=== PATIENT | male | born 1975 | race Caucasian/White ===

== ENCOUNTER 2021-07-03 15:38 | Observation (INO) | payer MEDICARE ==
[~2021-07-03] VITALS: Wt 87.0 kg
[2021-07-03] VITALS (9 sets, daily range): BP systolic 96–137; BP diastolic 44–69; PULSE 55–88; TEMP 97.4–99
[2021-07-03] MEDS ORDERED: BENADRYL25 M2 PO (16:45)
[2021-07-03] MEDS ORDERED: MOTRIN 200200 MG/TAB PO (16:46)
[2021-07-03] MEDS ORDERED: DEBROX OT (16:46)
[2021-07-03] MEDS ORDERED: [UNRECOGNIZED DRUG - OTHER] PO (16:47)
[2021-07-03] MEDS ORDERED: ROBITUSSIN DM 105 ML PO (16:48)
[2021-07-03] MEDS ORDERED: GOOD SENSE400 MG/5 M PO (16:49)
[2021-07-03] MEDS ORDERED: TYLENOL 325MG325 MG PO (16:49)
[2021-07-03] MEDS ORDERED: FLEET ENEM1 BOT/133 RC (16:51)
[2021-07-03] MEDS ORDERED: GLYCERIN S1 SUPP.REC RC (16:51)
[2021-07-03] MEDS ORDERED: ZESTRIL 10MG10 MG PO (16:52)
[2021-07-03] MEDS ORDERED: HCTZ 25MG TAB25 MG PO (16:53)
[2021-07-03] MEDS ORDERED: FLOMAX 0.40.4 MG/CAP PO (16:54)
[2021-07-03] MEDS ORDERED: TRICOR145 MG PO (16:54)
[2021-07-03] MEDS ORDERED: ZILRETTA32 MG (16:55)
--- NOTE | 2021-07-03 19:40 | NUR ---
To OR with OR staff.
--- NOTE | 2021-07-03 20:25 | NUR ---
Back to room from OR at this time. Admission assessment complete-managed care nurse at bedside. A&Ox4. Denies pain/nausea/shortness of breath. VS currently stable. Phillips cath with bloody output. IV fluids switched to 1/2 NS@60ml/hr to left forearm 22g. Infusing without difficulty. Provided with a general diet. noodle catalyst maker remains at bedside. Will monitor.
[2021-07-04 00:15] VITALS: BP 108/56; PULSE 62; TEMP 97.8
[2021-07-04 03:27] VITALS: BP 119/65; PULSE 68; TEMP 98.3
--- NOTE | 2021-07-04 05:07 | NUR ---
Rested well this shift. Tolerated PO. Phillips cath with reddish out put. IV fluids continue to infuse to left AC 22g-1/2NS@60ml/hr. Denied pain/nausea/shortness of breath. VS remained stable. Denies current needs. Call light in reach. Will monitor.
[2021-07-04 07:57] VITALS: BP 130/55; PULSE 74; TEMP 98.5
[2021-07-04] MEDS ORDERED: CIPRO 500MG TA500 MG PO (10:39)
--- NOTE | 2021-07-04 10:44 | NUR ---
Dr Clark has been in to see patient. Orders wrote for discharge, mother reported that they will not have a ride until closer to 3:30 this afternoon
[2021-07-04 12:27] VITALS: BP 126/50; PULSE 77; TEMP 98.4
--- NOTE | 2021-07-04 12:30 | NUR ---
Heart murmur, lungs clear to ausculation, bowels active x4. Discharge education consisted of patient's castillo catheter care.
--- NOTE | 2021-07-04 14:23 | NUR ---
Reviewed catheter care again with pt as well as his mother. Also gave them the catheter care handout. Reviewed discharge instructions with them as well to include follow up appointment
--- NOTE | 2021-07-04 14:43 | NUR ---
Reviewed dishcarge instructions again with pt and his parents. Reviewed catheter care and sent home with alcohol wipes as well as the catheter care wipes as there is concern about hygiene at home.
--- NOTE | 2021-07-04 14:52 | NUR ---
Pt escorted out at this time
--- NOTE | 2021-07-04 15:15 | NUR ---
Ear Pull Machine Operator met with patient and his mother/guardian, Ambar Stiles to discuss discharge planning. Patient has an intellectual disability and goes to Day [facility] at [facility] in [place] Wednesday-Wednesday. Patient lives at home with his parents, Ambar and Arnaldo and sees Dr. Arellano for primary care. Patient obtains medications from [facility] in bubble packs. During the week, -, patient receives medications at [facility] however on the weekends, two days worth of medications are sent home with him to take on Wednesday and Wednesday. Patient does not use any DME and receives some assistance from staff at [facility] with ADLS. Patient has a shower every day at [facility] and has his clothes washed as well due to concerns of lack of hygiene at home. RNTanya reported concern with patient and Ambar's hygiene as well concerns for ability to care for the catheter at home. HENRY contacted Ya Franco, Cold Type Artist and Zee Beatty, Analog Design Engineer at the [facility] who confirmed the above information. Zee advised patient is on the wait list for a fci and that she recently made an APS report for patient. Zee and Ya advised patient will have to discharge with his parents, however they are checking into the possibility of a respite stay in a fci while patient has the catheter. HENRY made a report to APS due to the above listed concerns as well as concern for food availability at home. APS intake #[id number]. Discharge Plan: Home
== END 2021-07-04 15:09 | disposition home or self-care (01) ==
LOC: SDCO 15:38 → SURG 18:00 → SDCO 20:28 → SURG 20:29
PROVIDERS: ADMIT Urology
DX: N35.914 Unspecified anterior urethral stricture, male (principal); N40.0 Benign prostatic hyperplasia without lower urinary tract symptoms; I10 Essential (primary) hypertension; E78.5 Hyperlipidemia, unspecified; F79 Unspecified intellectual disabilities; L21.9 Seborrheic dermatitis, unspecified; Z79.899 Other long term (current) drug therapy
CPT/HCPCS: C1769; C1894; G0378; J0690; J2704; J3010

== ENCOUNTER 2023-09-15 14:31 | Inpatient (IN) | payer MEDICARE, MEDICAID ==
[2023-09-15] VITALS (33 sets, daily range): BP systolic 91–133; BP diastolic 58–85; PULSE 96–118; TEMP 98.4; O2SAT 70–100
[~2023-09-15] VITALS: Ht 175.3 cm; Wt 77.0 kg
[~2023-09-15 14:31] MED LIST: BENADRYL25 M2 PO; CIPRO 500MG TA500 MG PO; DEBROX OT; FLEET ENEM1 BOT/133 RC; FLOMAX 0.40.4 MG/CAP PO; GLYCERIN S1 SUPP.REC RC; GOOD SENSE400 MG/5 M PO; HCTZ12.5TAB PO; MOTRIN 200200 MG/TAB PO; ROBITUSSIN DM 105 ML PO; TRICOR145 MG PO; TYLENOL 325MG325 MG PO; ZESTRIL 10MG10 MG PO; ZILRETTA32 MG; [UNRECOGNIZED DRUG - OTHER] PO
[2023-09-15 15:43] LABS: HEMOGLOBIN 17.8 g/dl (13.5-18.0); MEAN CELL VOLUME 96 fl (80.0-100.0); MEAN CORPUSCULAR HEMOGLOBIN 32 pg (27-31); MEAN CORPUSCULAR HGB CONC 34 g/dl (33.0-37.0); MEAN PLATELET VOLUME 10.8 fl (7.4-10.4); PLATELET COUNT 248 K/mm3 (130-400); RED BLOOD COUNT 5.54 M/mm3 (4.20-5.60); REDCELL DISTRIBUTION WIDTH-CV 13.7 % (11.5-14.5)
[2023-09-15 15:58] LABS: BAND 57 % (0-10); LYMPHOCYTE 15 % (20.0-51.0); METAMYELOCYTE 3 % (0-0); NEUTROPHILS 19 % (42.0-75.2)
[2023-09-15 15:59] LABS: PLATELET ESTIMATE NORMAL (NORMAL); POIKILOCYTOSIS 1+
[2023-09-15 19:01] LABS: BILIRUBIN,TOTAL 0.5 mg/dL (0.2-1.2); CALCIUM 8.1 mg/dL (8.4-10.2); CREATININE, serum 3.86 mg/dL (0.72-1.25); POTASSIUM 4.7 mmol/L (3.5-4.5); TOTAL PROTEIN 5.9 gm/dL (6.2-8.1)
[2023-09-15] MEDS ORDERED: K-DUR 10 MEQ T10 MEQ PO (20:35)
--- NOTE | 2023-09-15 23:27 | NUR ---
PT ARRIVED TO ICU VIA BED ACCOMPANIED BY OR STAFF. PT INTUBATED, SEDATED, AND IV FLUIDS/LEVOPHED RUNNING. SOOD CATHETER IN PLACE - REDDISH URINE. IMMEDIATELY UPON ARRIVAL SURGERY TEAM BEGAN TO PLACE RIGHT SUBCLAVIAN CENTRAL LINE AND LEFT RADIAL ARTERIAL LINE. BOTH DONE SUCCESSFULLY, VITALS WITHIN NORMAL LIMITS. CXR COMPLETED TO VERIFY CENTRAL LINE PLACEMENT. PT HAS MIDLINE ABD INCISION NOTED - ABD DRESSING - CDI. NEW COLOSTOMY NOTED - CDI - DRAINING. PLAN OF CARE ONGOING.
[2023-09-16] VITALS (824 sets, daily range): BP systolic 78–128; BP diastolic 42–83; PULSE 67–120; TEMP 97.4–100; O2SAT 68–100
[2023-09-16 01:01] LABS: ARTERIAL BLD GAS O2 SATURATION 99.2 % (92-100); ARTERIAL BLD GAS TCO2 CT 18.1; ARTERIAL BLOOD GAS BASE EXCESS -6.8 (-2-2); ARTERIAL BLOOD GAS HCO3 17.2 meq/L (22-26); ARTERIAL BLOOD GAS PCO2 31.1 mmHg (35-45); ARTERIAL BLOOD GAS PO2 206.5 mmHg (80-100); ARTERIAL BLOOD GAS pH 7.36 (7.35-7.45)
[2023-09-16 01:13] LABS: INR 1.8 (0.8-3.0); PROTHROMBIN TIME 19.5 SECONDS (9.7-12.8)
--- NOTE | 2023-09-16 05:41 | NUR ---
PT ON STARTING DOSE OF BOTH FENTANYL AND PROPOFOL. PT IS EASILY AROUSABLE AT THESE SEDATION LEVELS. CAN MOVE BOTH EXTREMITIES. RASS IS -1. TOLERATING VENT WELL. VITALS WNL.
[2023-09-16 05:50] LABS: HEMATOCRIT 45.5 % (42.0-52.0); MEAN CELL VOLUME 94 fl (80.0-100.0); MEAN CORPUSCULAR HEMOGLOBIN 32 pg (27-31); MEAN CORPUSCULAR HGB CONC 34 g/dl (33.0-37.0); MEAN PLATELET VOLUME 10.8 fl (7.4-10.4); PLATELET COUNT 205 K/mm3 (130-400); RED BLOOD COUNT 4.83 M/mm3 (4.20-5.60); REDCELL DISTRIBUTION WIDTH-CV 13.8 % (11.5-14.5)
[2023-09-16 06:15] LABS: HEMOGLOBIN 15.4 g/dl (13.5-18.0)
[2023-09-16 06:59] LABS: BAND 52 % (0-10); LYMPHOCYTE 26 % (20.0-51.0); METAMYELOCYTE 2 % (0-0); NEUTROPHILS 13 % (42.0-75.2); PLATELET ESTIMATE NORMAL (NORMAL)
[2023-09-16 07:01] LABS: BURR CELLS 1+; POIKILOCYTOSIS 1+
[2023-09-16 07:26] LABS: ALBUMIN 2.1 gm/dL (3.5-5.0); BILIRUBIN,TOTAL 0.7 mg/dL (0.2-1.2); CALCIUM 7.6 mg/dL (8.4-10.2); CREATININE, serum 3.54 mg/dL (0.72-1.25); POTASSIUM 4.5 mmol/L (3.5-4.5); TOTAL PROTEIN 4.9 gm/dL (6.2-8.1)
--- NOTE | 2023-09-16 07:35 | NUR ---
Report received from DRAKE Coronel; patient currently sedated on ventilator with prop and fent running through his subclavian central line for sedation; patient is also on levo and fluids, also running through his central line. Patient has ET tube and NG tube in place, as well as Phillips catheter and new colostomy. Patient has two peripheral INTs; no other lines or tubes are in place at this time. Patient appears to be comfortably sedated; vital signs are within normal limits this morning.
[2023-09-16 08:45] LABS: ARTERIAL BLD GAS O2 SATURATION 98.5 % (92-100); ARTERIAL BLOOD GAS BASE EXCESS -7.5 (-2-2); ARTERIAL BLOOD GAS HCO3 16.1 meq/L (22-26); ARTERIAL BLOOD GAS PCO2 28.3 mmHg (35-45); ARTERIAL BLOOD GAS pH 7.37 (7.35-7.45)
[2023-09-16 08:48] LABS: ARTERIAL BLOOD GAS PO2 129.1 mmHg (80-100)
--- NOTE | 2023-09-16 10:24 | NUR ---
Patient has an intellectual disability and lives at [facility] in a residential halfway in [place]. HENRY met with patient's manager science, Michel, and obtained contact information for patient's parents whom are currently in the [facility]. P# [phone] option 1 for residents and option 2 for nursing. HENRY contacted Ambar and Arnaldo Go, patient's next of kin. They expressed they would see if they could come up and visit with Thomas. HENRY contacted [facility] transportation and notified them that patient's family would like to visit their son. Patient's family currently have "colds", HENRY verified with Chen, ICU mail clerks supervisor, if there was restrictions on visits. Patient's family will need to wear a mask and if they need any assistance with care the nursing facility would need to assist with this. HENRY notified [facility] of the above information and they were going to work out a time for family to visit. HENRY contacted [facility] Acoustical Tile Patternmaker, Prisca Vaughan. HENRY provided updates regarding patient's status and notified her that she let patient's family know that he was in the ICU. Prisca requested updates sent via email to [email or web address]. HENRY obtained patient's new address, [address] [place] [address] Garza, pharmacy is [facility]. Patient is his own guardian, [facility] is the payee. No DME, previously was independent with ADLS. [facility] is able to transport patient to and from appointments. HENRY updated patient's information in the chart with admissions.
--- NOTE | 2023-09-16 11:13 | NUR ---
log pond worker sent email updates to [facility] showcase trimmer.
--- NOTE | 2023-09-16 16:45 | NUR ---
Patient's parents (Soheila) at bedside with Lea ([facility]) that transported them for visit. Clinical update provided at this time based on providers progress notes. Discussed surgery last night, ventilator rationale, vasopressors & plan of care. All questions answered & support offered. Advised Arnaldo & Ambar that they are the patient's legal decision makers while he on the ventilator. Discussed a communication plan so that they can receive updates, as well as hospital staff having good contact information. Zee [facility] - channel worker is the best contact 22/03 should the patient decline or if consent is needed. She will arrange a phone call with patient's parents. Soheila approved that Zee can call & get updates. An alternate phone number if Zee cannot be reached is the nurses station [phone] - option #2. Soheila did approve that the patient's strategic partner development manager at [facility] could call & get updates. Prisca [phone] - option #0 is the patient's strategic partner development manager.
--- NOTE | 2023-09-16 19:47 | NUR ---
Sedation vacation not done today as patient is on very minimal sedation and is responsive; patient appears comfortable and is arousable and able to follow commands.
--- NOTE | 2023-09-16 21:05 | NUR ---
LEVOPHED ORDER CHANGED TO 8MG/8ML PER 250ML DEXTROSE 5% DUE TO HIGH RATE AND VOLUME OF FLUID PATIENT RECIEVING WITH LOWER CONCENTRATION. PREVIOUS RATE WAS 118ML/HR, NEW RATE IS 59ML/HR. PATIENT RECIEVING SAME DOSE.
[2023-09-17] VITALS (38 sets, daily range): BP systolic 95–124; BP diastolic 56–99; PULSE 60–91; TEMP 98.4–99.9; O2SAT 100
[2023-09-17 04:44] LABS: ALBUMIN 1.7 gm/dL (3.5-5.0); BILIRUBIN,TOTAL 0.9 mg/dL (0.2-1.2); CALCIUM 7.9 mg/dL (8.4-10.2); CREATININE, serum 1.89 mg/dL (0.72-1.25); POTASSIUM 3.2 mmol/L (3.5-4.5); TOTAL PROTEIN 4.7 gm/dL (6.2-8.1)
[2023-09-17 05:00] LABS: HEMATOCRIT 39.7 % (42.0-52.0); MEAN CELL VOLUME 94 fl (80.0-100.0); MEAN CORPUSCULAR HEMOGLOBIN 32 pg (27-31); MEAN CORPUSCULAR HGB CONC 34 g/dl (33.0-37.0); MEAN PLATELET VOLUME 10.7 fl (7.4-10.4); PLATELET COUNT 176 K/mm3 (130-400); RED BLOOD COUNT 4.23 M/mm3 (4.20-5.60); REDCELL DISTRIBUTION WIDTH-CV 13.6 % (11.5-14.5)
[2023-09-17 05:03] LABS: HEMOGLOBIN 13.4 g/dl (13.5-18.0)
[2023-09-17 05:21] LABS: ARTERIAL BLD GAS O2 SATURATION 98.1 % (92-100); ARTERIAL BLOOD GAS BASE EXCESS -1.7 (-2-2); ARTERIAL BLOOD GAS pH 7.46 (7.35-7.45)
[2023-09-17 05:22] LABS: ARTERIAL BLD GAS TCO2 CT 21.9
[2023-09-17 05:27] LABS: MAGNESIUM 1.9 mg/dL (1.6-2.6); PHOSPHOROUS 4.5 mg/dL (2.3-4.7)
[2023-09-17 06:21] LABS: BAND 55 % (0-10); LYMPHOCYTE 14 % (20.0-51.0); METAMYELOCYTE 1 % (0-0); NEUTROPHILS 25 % (42.0-75.2)
[2023-09-17 06:22] LABS: PLATELET ESTIMATE NORMAL (NORMAL)
--- NOTE | 2023-09-17 07:00 | NUR ---
Report received from DRKAE Gaytan; patient currently intubated and sedated with prop and fent running for sedation. Patient remains on levo and vaso this morning as well; IVF are also running, all going through patient's right internal jugular central line. Patient has a peripheral INT in the left arm, and ET tube, NG tube, and Phillips catheter are all still in place; patient has ART line in the left wrist. No other lines or tubes are in place at this time.
--- NOTE | 2023-09-17 15:57 | NUR ---
Solid Waste Disposal Manager spoke briefly with DRAKE Coreas from [facility] who is at bedside with patient. Lyudmila had no questions or concerns for SW at this time in regards to patient.
--- NOTE | 2023-09-17 17:00 | NUR ---
Sedation vacatoion not done today as patient is answering questions appropriately and is also responsive and follows commands. Patient is comfortable and shakes head "no" when asked if he is in any pain or uncomfortable.
--- NOTE | 2023-09-17 19:00 | NUR ---
RECEIVED CHANGE OF SHIFT REPORT FROM DRAKE MUÑOZ. PATIENT IS CURRENTLY SEDATED AND INTUBATED WITH A TLC IN HIS RIGHT SUBCLAVIAN, WITH FLUIDS, ANTIBIOTICS, SEDATION, PAIN MANAGEMENT AND VASOPRESSORS RUNNING. TRIPLE LUMEN IS PATENT WITH GOOD BLOOD RETURN. PATIENT ALSO HAS ONE INT SITE IN HIS LEFT FOREARM, FLUSHES AND IS PATENT. PATIENT HAS COLOSTOMY AND SOOD CATHETER WHICH ARE BOTH PATENT AND DRAINING TO GRAVITY. PATIENT HAS EYES CLOSED AND SEEMS TO BE RESTING. PATIENT DOES NOT WANT TV ON. WILL FURTHER ASSESS.
--- NOTE | 2023-09-17 19:48 | NUR ---
CALLED DR. Noah WALKER REGARDING PATIENT'S SCHEDULED ZOPHRAN. ALSO SPOKE TO DR. Rikki WALKER ABOUT DISCONTINUING PATIENT'S ARTERIAL LINE. AGREEABLE TO BOTH.
--- NOTE | 2023-09-17 22:47 | NUR ---
PATIENT'S ARTERIAL LINE DISCONTINUED AND PATIENT'S ZOPHRAN ORDER EDITED.
[2023-09-18] VITALS (313 sets, daily range): BP systolic 92–133; BP diastolic 42–80; PULSE 52–104; TEMP 96.7–99.7; O2SAT 91–100
[2023-09-18 04:51] LABS: MEAN CELL VOLUME 94 fl (80.0-100.0); MEAN CORPUSCULAR HGB CONC 34 g/dl (33.0-37.0); MEAN PLATELET VOLUME 10.5 fl (7.4-10.4); PLATELET COUNT 135 K/mm3 (130-400); RED BLOOD COUNT 3.18 M/mm3 (4.20-5.60); REDCELL DISTRIBUTION WIDTH-CV 13.8 % (11.5-14.5)
[2023-09-18 04:59] LABS: MEAN CORPUSCULAR HEMOGLOBIN 32 pg (27-31)
--- NOTE | 2023-09-18 05:01 | NUR ---
NOTIFIED BY LAB REGARDING PATIENT'S DELTA CHANGE IN HEMAGLOBIN
[2023-09-18 05:02] LABS: HEMOGLOBIN 10.2 g/dl (13.5-18.0)
[2023-09-18 05:06] LABS: MAGNESIUM 1.6 mg/dL (1.6-2.6)
--- NOTE | 2023-09-18 05:06 | NUR ---
PLAN FOR EXTUBATION TODAY AT 0700. SEDATION CUT IN HALF AND WILL BE COMPLETELY OFF AT 0600.
[2023-09-18 05:10] LABS: ALBUMIN 1.5 gm/dL (3.5-5.0); BILIRUBIN,TOTAL 0.6 mg/dL (0.2-1.2); CALCIUM 7.7 mg/dL (8.4-10.2); CREATININE, serum 1.2 mg/dL (0.72-1.25); POTASSIUM 3.2 mmol/L (3.5-4.5); TOTAL PROTEIN 4.4 gm/dL (6.2-8.1)
[2023-09-18 06:50] LABS: BAND 17 % (0-10); LYMPHOCYTE 5 % (20.0-51.0); NEUTROPHILS 73 % (42.0-75.2)
[2023-09-18 06:51] LABS: BURR CELLS 1+; PLATELET ESTIMATE NORMAL (NORMAL)
--- NOTE | 2023-09-18 07:47 | NUR ---
PT STARTED ON CPAP TRIAL @0700 TOLERATING WELL. RSBI 69-80 VT'S 300-400 R 20-25.
[2023-09-18 08:20] LABS: ARTERIAL BLD GAS O2 SATURATION 96.1 % (92-100); ARTERIAL BLD GAS TCO2 CT 25.9; ARTERIAL BLOOD GAS BASE EXCESS 0.7 (-2-2); ARTERIAL BLOOD GAS HCO3 24.7 meq/L (22-26); ARTERIAL BLOOD GAS PCO2 37.3 mmHg (35-45); ARTERIAL BLOOD GAS PO2 80.9 mmHg (80-100); ARTERIAL BLOOD GAS pH 7.44 (7.35-7.45)
--- NOTE | 2023-09-18 09:16 | NUR ---
PATIENT SUCCESSFULLY EXTUBATED AT THIS TIME. NG DC'D ALONG WTIH PROPOFOL AND FENTANYL PER PROVIDER. PATIENT DOING WELL AND CONVERSING WITH STAFF. SUPPLEMENTAL O2 BEING PROVIDED VIA NASAL CANNULA AT 2L. NONVIOLENT RESTRAINTS DC'D AT THIS TIME.
--- NOTE | 2023-09-18 13:09 | NUR ---
PT EXTUBATED WITHOUT COMPLICATIONS. PLACED ON 2L/NC 98%. TOLERATING WELL
--- NOTE | 2023-09-18 19:00 | NUR ---
RECEIVED CHANGE OF SHIFT REPORT FROM DRAKE DONAHUE. PATIENT IS CURRENTLY VISITING WITH FAMILY, WITH THE TV ON AND THE BED IN CHAIR POSITION. PATIENT CURRENTLY STILL HAS 2 INT SITES WITH AMIO AND LEVOPHED RUNNING. PATIENT IS ON OXYGEN AT 5L NASAL CANNULA. PATIENT STILL HAS A SOOD CATHETER IN PLACE, PATENT AND DRAINING TO GRAVITY. VITAL SIGNS HAVE BEEN STABLE. CALL LIGHT IS WITHIN REACH.
--- NOTE | 2023-09-18 19:20 | NUR ---
RECEIVED CHANGE OF SHIFT REPORT FROM DRAKE DONAHUE. PATIENT IS CURRENT RESTING WITH EYES CLOSED IN BED. PATIENT'S VITAL SIGNS ARE STABLE. PATIENT STILL HAS TRIPLE LUMEN CATHETER AND LEFT ANTECUBITAL INT SITE STILL IN PLACE, BOTH PATENT AND THE TRIPLE WITH GOOD BLOOD RETURN. SOOD CATHETER STILL IN PLACE, PATENT AND DRAINING TO GRAVITY. PATIENT HAS COMPLAINTS OF PAIN, WILL REMEDY. CALL LIGHT WITH WITHIN REACH.
[2023-09-19] VITALS (362 sets, daily range): BP systolic 127–142; BP diastolic 65–88; PULSE 59–88; TEMP 97.2–99.2; O2SAT 89–97
[2023-09-19 06:10] LABS: HEMOGLOBIN 11.2 g/dl (13.5-18.0); MEAN CELL VOLUME 93 fl (80.0-100.0); MEAN CORPUSCULAR HEMOGLOBIN 32 pg (27-31); MEAN CORPUSCULAR HGB CONC 34 g/dl (33.0-37.0); MEAN PLATELET VOLUME 9.9 fl (7.4-10.4); PLATELET COUNT 130 K/mm3 (130-400); RED BLOOD COUNT 3.53 M/mm3 (4.20-5.60); REDCELL DISTRIBUTION WIDTH-CV 14.2 % (11.5-14.5)
[2023-09-19 06:20] LABS: INR 1.3 (0.8-3.0); PROTHROMBIN TIME 13.5 SECONDS (9.7-12.8)
[2023-09-19 06:20] LABS: HEMATOCRIT 32.8 % (42.0-52.0)
[2023-09-19 06:34] LABS: CALCIUM 8.6 mg/dL (8.4-10.2); CREATININE, serum 0.85 mg/dL (0.72-1.25); MAGNESIUM 1.5 mg/dL (1.6-2.6); PHOSPHOROUS 2.3 mg/dL (2.3-4.7); POTASSIUM 3.7 mmol/L (3.5-4.5)
[2023-09-19 08:01] LABS: BAND 18 % (0-10); EOSINOPHIL 1 % (0-4); LYMPHOCYTE 15 % (20.0-51.0); NEUTROPHILS 58 % (42.0-75.2); PLATELET ESTIMATE NORMAL (NORMAL)
--- NOTE | 2023-09-19 20:13 | NUR ---
PATIENT TRANSFERRED TO [place] [id number] BY SURGICAL FLOOR STAFF, KAISER KIDDVES NURSE REPORT, VITALS RECORDED
--- NOTE | 2023-09-19 22:28 | NUR ---
PATIENT ALERT TO SELF, BUT WITH COGNITIVE DELAY HARD TO ASSESS ORIENTATION. PATIENT NONVERBAL BUT WILL ANSWER YES OR NO TO QUESTIONS. PATIENT HERE FOR EXPLORATORY LAP. MIDLINE INCISION WITH JASON INTACT, DRESSING CHANGED WITH ABD AND MEPILEX. COLOSTOMY IN PLACE AND LOOSE, BROWN OUTPUT. SOOD TO DD WITH PEACH/CLOUDY OUTPUT. PATIENT HESITANT ON PERSONAL CARE. PATIENT DID REPORT PAIN, IV MORPHINE ADMINISTERED. PATIENT ON CLEAR LIQUID DIET, TOLERATING FLUIDS. IV FLUIDS TO RIJ, LR RUNNING AT 75ML/HOUR IN BROWN LUMEN. RIJ TRIPLE LUMEN WITH DRESSING INTACT. INT NEEDLE TO LEFT FA FLUSHES WELL. NO FURTHER NEEDS. CALL LIGHT IN REACH. BED ALARM ON.
[2023-09-20] VITALS (9 sets, daily range): BP systolic 127–150; BP diastolic 66–79; PULSE 58–84; TEMP 98.1–98.9
--- NOTE | 2023-09-20 07:12 | NUR ---
Spoke with Dulce PRADHAN, made her aware of cardiology consult that was never completed.
--- NOTE | 2023-09-20 10:28 | NUR ---
Patient resting in bed. Hospitalist rounded this am. Order obtained. Patient on low fiber diet, but not interested in solid food. Just wanting liquids. Patient assisted to drink water and juice. Dr. Sapp made aware of his reports of sore throat & speech ordered. Patient appears in pain/discomfort, he reports headache, tyelnol orders obtained and given per patient request. Took pill without problem. RiJ with IVF as ordered, New sterile dressing applied. Castillo to DD with castillo cares given. LLQ with colostomy, watery dark green output noted. Patient provided with ostomy cares & new appliace placed. Patient worked with therapy. Not able to get to chair. Scds ble. Edema noted. Will closely monitor
--- NOTE | 2023-09-20 12:51 | NUR ---
SPOKE WITH ALEX IN CARDIOLOGY & CONSULT CALLED. STATUS UPDATE GIVEN ON PATIENT
--- NOTE | 2023-09-20 13:13 | NUR ---
Patient resting in bed. The lunch he asked for of bread and gravy with ice tea was ordered. Patient offered the lunch and atttempted to help him eat, but he refused. Will continues to offer and encourage. He did drink tea. Made RT aware of EKG order
--- NOTE | 2023-09-20 14:42 | NUR ---
Freight Shipping Agent spoke with PT/OT about recommendation for SNF. SW also contacted patient's Education Assistant, Prisca and provided updates via secure email. SW gave referrals to three local facilities: [facility], [facility], and [facility]. SW met with patient to explain her role in discharge planning and what is being recommended.
--- NOTE | 2023-09-20 15:25 | NUR ---
Patient repositioned in bed. Had a large volume of emesis, zofran PRN given. Patient provided with hygiene & fresh linens. rounded and aware. Patient able to have sips of clears. He will be NPO for lexiscan in am.
--- NOTE | 2023-09-20 17:47 | NUR ---
Patient sleeping soundly. Remains Npo, without nausea. Ivf as ordered. Will monitor
--- NOTE | 2023-09-20 19:18 | NUR ---
Patient repositioned in bed and given a sip of water, bedside report to Bhavana.
--- NOTE | 2023-09-20 20:30 | NUR ---
PT ALERT & SITTING UP IN BED. VSS ON 1L/NC. PT DENYING PAIN OR N/V. MIDLINE INCISON DRESSING CDI. COLOSTOMY WITH DARK BROWN/GREEN LIQUID OUTPUT. SOOD TO DD WITH TEA COLORED OUTPUT. RIGHT IJ WITH LR @ 5O INFUSING. SCDS ON. CALL LIGHT IN REACH & FALL PRECAUTIONS IN PLACE. PT DENYING FURTHER NEEDS.
[2023-09-21] VITALS (12 sets, daily range): BP systolic 135–153; BP diastolic 63–96; PULSE 78–92; TEMP 97.5–99.3
--- NOTE | 2023-09-21 02:15 | NUR ---
PT STATES "I NEED THE BUCKET I FEEL SICK". STATE HE FEELS LIKE HE DID WHEN HE VOMITED EARLIER. NO EMESIS NOTED. GIVEN PRN ZOFRAN.
--- NOTE | 2023-09-21 06:25 | NUR ---
PT RESTING IN BED WITH UNLABORED RESP. DENYING FURTHER NEEDS. CALL LIGHT IN REACH & FALL PRECAUTIONS IN PLACE.
--- NOTE | 2023-09-21 08:30 | NUR ---
pt alert and resting in bed. pt requesting water but is NPO for lexiscan this morning. vss and tele in place. pt refusing nasal cannula and pt 02 sats remain around 85-90% on room air. castillo to dd w bloody urine output. colostomy w green liquid output. midline incision is cdi. contact precautions followed. pt denies nausea and pain. fall precautions in place. pt denies needs at this time. call light in reach.
[2023-09-21 09:37] LABS: HEMOGLOBIN 11.4 g/dl (13.5-18.0); MEAN CELL VOLUME 94 fl (80.0-100.0); MEAN CORPUSCULAR HEMOGLOBIN 32 pg (27-31); MEAN CORPUSCULAR HGB CONC 34 g/dl (33.0-37.0); MEAN PLATELET VOLUME 10.3 fl (7.4-10.4); PLATELET COUNT 172 K/mm3 (130-400); RED BLOOD COUNT 3.54 M/mm3 (4.20-5.60); REDCELL DISTRIBUTION WIDTH-CV 14.2 % (11.5-14.5)
[2023-09-21 09:38] LABS: HEMATOCRIT 33.3 % (42.0-52.0)
[2023-09-21 09:45] LABS: CALCIUM 8.2 mg/dL (8.4-10.2); CREATININE, serum 0.79 mg/dL (0.72-1.25); POTASSIUM 3.4 mmol/L (3.5-4.5)
--- NOTE | 2023-09-21 11:15 | NUR ---
spoke w Sarah Beth salazar cardiology and informed her that pt is refusing lexiscan
--- NOTE | 2023-09-21 14:49 | NUR ---
steam table worker spoke with Mayra Bernal RN, and Mayra Cope bilingual patient support caseworker. Worker gave verbal updates and asked if Mayra Berger can accept from the hospital of if patient will need to have skilled care. Prisca stated that the [facility] team is currently being trained for colostomy care. Worker encouraged the [facility] staff to come the hospital for training as well. Worker advised that patient is a 2 person transfer. Worker advised that if patient is needing mcfp, patient will need to complete a durable power of claims attorney. Prisca states they have identified a family relative, Tapan, that may service as a durable power of claims attorney. Worker requested Mayra Berger to come to the hospital for this document completion. Will await word from [facility] regarding their recommendation for returning to his care home or need fo mcfp. Referrals out to local nursing facilities. Surjit with [facility] needs assistance as patient's medicare is listed as secondary. Yocasta with financial counseling is assisting with the insurance situation.
--- NOTE | 2023-09-21 16:23 | NUR ---
Kali declined SNF referral.
--- NOTE | 2023-09-21 17:28 | NUR ---
new dressing applied to RIJ, pt tolerated. pt denies wanting to be repositioned.
--- NOTE | 2023-09-21 20:00 | NUR ---
PT A&O LAYING IN BED. DENYING N/V & STATES HIS HEAD FILLS DIZZY. VSS, PT REFUSING OXYGEN, O2 SAT IN 85-90S. MIDLINE DRESSING CDI. COLOSTOMY WITH LIQUID BROWN OUTPUT. SOOD TO DD WITH TEA COLORED OUTPUT. RT IJ PATENT WITH BLOOD RETURN. CALL LIGHT IN REACH & PT DENYING FURTHER NEEDS.
[2023-09-22] VITALS (12 sets, daily range): BP systolic 127–160; BP diastolic 70–89; PULSE 76–88; TEMP 97.8–98.7
--- NOTE | 2023-09-22 06:25 | NUR ---
PT RESTING IN BED. DENYING PAIN OR N/V THIS MORNING. CALL LIGHT REACH & FALL PRECAUTIONS IN PLACE
[2023-09-22 06:32] LABS: HEMOGLOBIN 11.8 g/dl (13.5-18.0); MEAN CELL VOLUME 93 fl (80.0-100.0); MEAN CORPUSCULAR HEMOGLOBIN 32 pg (27-31); MEAN CORPUSCULAR HGB CONC 35 g/dl (33.0-37.0); MEAN PLATELET VOLUME 9.4 fl (7.4-10.4); PLATELET COUNT 237 K/mm3 (130-400); RED BLOOD COUNT 3.66 M/mm3 (4.20-5.60); REDCELL DISTRIBUTION WIDTH-CV 14.2 % (11.5-14.5)
[2023-09-22 06:37] LABS: HEMATOCRIT 34.1 % (42.0-52.0)
[2023-09-22 06:52] LABS: CALCIUM 8.4 mg/dL (8.4-10.2); CREATININE, serum 0.73 mg/dL (0.72-1.25); MAGNESIUM 1.5 mg/dL (1.6-2.6); POTASSIUM 3.5 mmol/L (3.5-4.5)
[2023-09-22 06:58] LABS: BAND 2 % (0-10); EOSINOPHIL 1 % (0-4); LYMPHOCYTE 13 % (20.0-51.0); NEUTROPHILS 82 % (42.0-75.2); PLATELET ESTIMATE NORMAL (NORMAL)
--- NOTE | 2023-09-22 08:56 | NUR ---
pt ambulating in room with therapy. pt reports having a headache, tylenol given. pt refusing breakfast, only wants to have water and tea. vss and tele in place. pt refusing to wear nasal cannula, denies feeling short of breath. colostomy in place w liquid green output. castillo to dd w tea colored urine. potassium replaced per protocol. pt remains on contact precautions. +1 edema to BUE. RIJ patent. pt denies nausea. midline incision is cdi. fall precautions in place. scds to ble. no needs at this time. call light in reach.
--- NOTE | 2023-09-22 10:53 | NUR ---
called dr erickson to update on pt. pt reports a headache and dizziness as well as a sore throat when he tries to eat. tylenol able to help subside headache some. [place] given for pain and EKG ordered per dr erickson. vital signs are stable. pt willing to try and eat some yogurt for lunch.
--- NOTE | 2023-09-22 15:55 | NUR ---
Transit Operations Supervisor spoke with Prisca, 3D Designer who advised she and the rest of patient's team met this morning to discuss his care. At this time, they still support going skilled first before a transition back to the jail. Prisca also advised patient does not have any family that would be appropriate to designate as DPOA-HC as patient's parents are in a jail and patient's brother has a history of stealing from patient. Prisca advised that staff at [facility] also cannot act as DPOA-HC. HENRY discussed [facility] as an option with Prisca and told her a referral would be sent. HENRY contacted Tash and Bethany at [facility] bed to discuss referral. Their team will review referral, but it may be a couple days until they have a bed. HENRY met with patient to discuss discharge plan. Patient advised he would like to stay here in this hospital. HENRY explained to patient that this would not be an option and offered encouragement. Discharge Plan: [facility], pending referral
--- NOTE | 2023-09-22 20:00 | NUR ---
Pt a&o laying in bed. refusing oxygen, O2 sat 88-90% Denying pain or n/v. Colostomy with liquid green output. Midline incision dressing cdi. Phillips to dd with tea colored output. Right IJ flushes with blood return. scds on ble. pt turned onto right side. fall precautions in place & call light in reach. pt denying further needs
[2023-09-23] VITALS (13 sets, daily range): BP systolic 120–138; BP diastolic 46–77; PULSE 57–95; TEMP 97.8–99.6
--- NOTE | 2023-09-23 06:27 | NUR ---
PT LAYING IN BED & WAITING FOR BREAKFAST. DENYING FURTHER NEEDS. CALL LIGHT IN REACH
[2023-09-23 10:15] LABS: HEMATOCRIT 37.9 % (42.0-52.0); HEMOGLOBIN 12.4 g/dl (13.5-18.0); MEAN CELL VOLUME 96 fl (80.0-100.0); MEAN CORPUSCULAR HEMOGLOBIN 32 pg (27-31); MEAN CORPUSCULAR HGB CONC 33 g/dl (33.0-37.0); MEAN PLATELET VOLUME 9.3 fl (7.4-10.4); PLATELET COUNT 316 K/mm3 (130-400); RED BLOOD COUNT 3.93 M/mm3 (4.20-5.60); REDCELL DISTRIBUTION WIDTH-CV 14.5 % (11.5-14.5)
--- NOTE | 2023-09-23 10:23 | NUR ---
PT LAYING IN BED, ALERT AND ORIENTEDX4. PT HAS NO COMPLAINTS OF PAIN AT THIS TIME. PT HAS SOME BILATERATERAL EDEMA IN HANDS. MIDLINE INSISION IS SLIGHTLY RED AROUND STABLES BUT CLEAN DRY INTACT. COLOSTOMY DRAINING. ASSESSED AND GAVE MORNING MEDS. CALL LIGHT WITHIN REACH.
[2023-09-23 10:35] LABS: CREATININE, serum 0.62 mg/dL (0.72-1.25); MAGNESIUM 1.4 mg/dL (1.6-2.6)
[2023-09-23 10:36] LABS: BAND 8 % (0-10); EOSINOPHIL 3 % (0-4); LYMPHOCYTE 5 % (20.0-51.0); NEUTROPHILS 81 % (42.0-75.2)
[2023-09-23 10:37] LABS: HYPOCHROMIA 1+; PLATELET ESTIMATE NORMAL (NORMAL)
[2023-09-23 12:18] LABS: COLLECTION METHOD CLEAN CATCH
--- NOTE | 2023-09-23 12:32 | NUR ---
PT IS REFUSING TO LET THIS NURSE TAKE OUT SOOD CATHETER. PT REASONING IS THAT IT WILL HURT. THIS NURSE TRIED TO EXPLAIN TO PT WHY CATHETER CANNOT BE LEFT IN. PT STILL REFUSED AND HELD DOWN BLANKET SO WE COULDN'T GET TO CATHETER.
[2023-09-23 12:46] LABS: PH 6.5 (5.0-8.5); URINE APPEARANCE Clear (CLEAR/HAZY); URINE BLOOD Negative (NEGATIVE); URINE COLOR Yellow (YELLOW); URINE GLUCOSE 1+ (NEGATIVE); URINE KETONE Negative (NEGATIVE); URINE NITRATE Negative (NEGATIVE); URINE PROTEIN(semi-quant) Negative (NEGATIVE)
[2023-09-23 13:04] LABS: SQUAMOUS EPITHELIAL 0-2 /hpf (0-10); URINE BACTERIA Rare /hpf (NONE SEEN); URINE RBC 20-50 /hpf (0-2)
[2023-09-23 13:59] LABS: CLOSTRIDIUM DIFF A/B NEG
--- NOTE | 2023-09-23 15:43 | NUR ---
Biomedical Equipment Tech spoke with Candice Albrecht, Day Services Director who was visiting with patient. HENRY updated her on discharge plan for [facility] and she will pass this along to the team. Candice advised they would possibly be able to assist with transportation depending on the day fo discharge. HENRY spoke with Tash at [facility] who advised they can likely accept patient once they have a bed available. HENRY met with patient to provide update and he is agreeable to discharge plan. Discharge Plan: [facility]
--- NOTE | 2023-09-23 16:36 | NUR ---
TOOK OUT PT INDIGO AT 1330
--- NOTE | 2023-09-23 19:41 | NUR ---
RECEIVED CHANGE OF SHIFT REPORT FROM DAY SHIFT NURSE. RIJ IN PLACE. TELE IN PLACE. PER NURSE REPORT, PATIENT HAS ALREADY VOIDED X1
[2023-09-24] VITALS (12 sets, daily range): BP systolic 107–136; BP diastolic 58–74; PULSE 82–93; TEMP 97.9–98.7
[2023-09-24 07:27] LABS: HEMOGLOBIN 11.7 g/dl (13.5-18.0); MEAN CELL VOLUME 95 fl (80.0-100.0); MEAN CORPUSCULAR HEMOGLOBIN 31 pg (27-31); MEAN CORPUSCULAR HGB CONC 33 g/dl (33.0-37.0); MEAN PLATELET VOLUME 9.5 fl (7.4-10.4); PLATELET COUNT 352 K/mm3 (130-400); RED BLOOD COUNT 3.76 M/mm3 (4.20-5.60); REDCELL DISTRIBUTION WIDTH-CV 14.4 % (11.5-14.5)
[2023-09-24 07:29] LABS: HEMATOCRIT 35.7 % (42.0-52.0)
[2023-09-24 07:48] LABS: CALCIUM 7.8 mg/dL (8.4-10.2); CREATININE, serum 0.62 mg/dL (0.72-1.25); POTASSIUM 3.6 mmol/L (3.5-4.5)
--- NOTE | 2023-09-24 07:48 | NUR ---
CHANGE OF SHIFT REPORT GIVEN TO DAY SHIFT NURSEANYA. PATIENT RESTING IN BED, IV ANTIBIOTIC INFUSING WITH NO REPORTED CONCERNS AT TIME OF REPORT.
[2023-09-24 08:16] LABS: BAND 5 % (0-10); EOSINOPHIL 1 % (0-4); LYMPHOCYTE 6 % (20.0-51.0); NEUTROPHILS 83 % (42.0-75.2); PLATELET ESTIMATE NORMAL (NORMAL)
--- NOTE | 2023-09-24 08:47 | NUR ---
PT SITTING UP IN BED EATING BREAKFAST. ALERT AND ORIENTEDX4. NO COMPLAINTS OF PAIN AT THIS TIME. LET AIR OUT OF COLOSTOMY BAG, LIQUID STOOL IS IN COLOSTMY BAG. PT IS INCONTENT OF URINE. ASSESSED AND GAVE MORNING MEDS. CALL LIGHT WITHIN REACH.
--- NOTE | 2023-09-24 12:15 | NUR ---
triple lumen catheter to right subclavian removed under sterile technique, patient cried and c/o throughout but this is his nature, he was asked to perform valsalva maneuver and this was explained to him, he has difficulty understanding but I do believe he was able to perform this, the catheter was removed, the tip was placed in sterile container, the patient did move and the catheter tip skimmed the spread, pressure was held for 5 minutes and then occlusive dressing was placed, he is diapheritic and taped was also placed to help hold tegaderm in place
--- NOTE | 2023-09-24 13:26 | NUR ---
GOT ORDERS FROM DR MUSE TO REMOVE PT RIGHT IJ CENTRAL LINE DUE TO POSSIBLE INFECTION. AIVS PLACED A NEW PERIPHERAL LINE IN THE RIGHT AC. THIS NURSE HELPED THE CHARGE NURSE TAKE OUT OUT RIGHT IJ LINE. CATH TIP WAS STERILE AND PT ACCIDENTLY KICKED THE TIP ONTO THE SHEET. CATH TIP WAS STILL SENT DOWN TO LAB AND LAB WAS MADE AWARE OF INCIDENT. PT BECAME VERY SWEATY DURING THIS PROCEDURE. IV DRESSING HAD TO BE REPLACED. IV STILL INTACT.
--- NOTE | 2023-09-24 16:57 | NUR ---
lithopone mill worker was notified patient was accepted at [facility] and will be able to go there on Wednesday. HENRY contacted commercial intelligence manager manager inspection, Jazmín, P# [phone]. Jazmín stated she would be able to transport patient on Wednesday to the [facility]. SW will contact her with a discharge time. Discharge plan: [facility]
[2023-09-25] VITALS (11 sets, daily range): BP systolic 108–123; BP diastolic 47–69; PULSE 75–95; TEMP 97.9–98.5
[2023-09-25 09:25] LABS: HEMATOCRIT 38.7 % (42.0-52.0); HEMOGLOBIN 12.8 g/dl (13.5-18.0); MEAN CELL VOLUME 96 fl (80.0-100.0); MEAN CORPUSCULAR HEMOGLOBIN 32 pg (27-31); MEAN CORPUSCULAR HGB CONC 33 g/dl (33.0-37.0); MEAN PLATELET VOLUME 9.1 fl (7.4-10.4); PLATELET COUNT 382 K/mm3 (130-400); RED BLOOD COUNT 4.05 M/mm3 (4.20-5.60); REDCELL DISTRIBUTION WIDTH-CV 14.5 % (11.5-14.5)
[2023-09-25 09:42] LABS: CALCIUM 8.2 mg/dL (8.4-10.2); CREATININE, serum 0.62 mg/dL (0.72-1.25); POTASSIUM 4.3 mmol/L (3.5-4.5)
[2023-09-25 10:09] LABS: BAND 17 % (0-10); EOSINOPHIL 1 % (0-4); LYMPHOCYTE 6 % (20.0-51.0); NEUTROPHILS 75 % (42.0-75.2); PLATELET ESTIMATE NORMAL (NORMAL)
--- NOTE | 2023-09-25 11:59 | NUR ---
Patient resting in bed. Alert & oriented. & rounded this am. Plan of care reviewed. Patient has talked alot about his upcoming birthday this am, he is hoping to have [facility] and [facility] to celebrate. Patient likes being in the hoslital and was hoping to stay until his birthday, he is aware that [facility] will transport him to [facility]. Patient provided with colostomy cares this AM, New wafer cut to fit and appliance. Patient has liquid stools and gas. made aware midline draining around umbilicus area, airstrip applied. Patient given extensive bed bath this am, shaving completed per patient approval and request. Patient is hesitent about repositioning in bed, but reviewed the importance. Patient was a hard lab draw this am, ER nurse Nighat came to complete after 2 failed attemps from lab. I spoke with Sarah Beth in pharmacy and she verified zosyn & MG replamcent could be Y sited this am. Fall risk protocol followed. Patient tolerating low fiber diet with assisted without nausea. Lunch ordered. WIll monitor
--- NOTE | 2023-09-25 16:56 | NUR ---
Patient resting in bed. Watching basketball. Patient happy, he had "birthday" pizza and a soda for dinner and tolerated well. He requested staff sing him Happy birthday and multiple CNAs and staff sang, patient was pleased. Patient had a very incontinent episode, education provided on importance of keeping skin clean & dry. Patient encouraged to call for help to use urinal or restroom. Full bed bath and linens changed completed with 3 step incontince cares. Ostomy emptied. New airstrip to midline incision. drainage continued from umbilicus area. Int. Tylenol for abdominal pain. Will monitor
--- NOTE | 2023-09-25 18:53 | NUR ---
Patient again very incontinent of urine. Again encouraged to call. Full bed bath and linens provided. 3 step barrier system used. Patient repositioned in bed. He continues to watch TV. Bedside report to Jennifer to resume cares
[2023-09-26] VITALS (7 sets, daily range): BP systolic 119–131; BP diastolic 51–68; PULSE 85–92; TEMP 98.2–98.5
--- NOTE | 2023-09-26 06:45 | NUR ---
awake resting in bed, bedside shift report received paulino Pittman RN
--- NOTE | 2023-09-26 06:54 | NUR ---
airstrip to abd incision changed x1 tonight, d/t small amt of clear drainage from umbilicus area. remains incontinent of urine, colostomy with light brown soft stool, bag intact.
--- NOTE | 2023-09-26 08:15 | NUR ---
ELECTRIC [employer] in and assisted him with sitting up to eat breakfast
--- NOTE | 2023-09-26 08:40 | NUR ---
physical therapy in to work with patient, will assist him up to bathroom
[2023-09-26] MEDS ORDERED: TYLENOL 325MG325 MG PO (08:42)
[2023-09-26] MEDS ORDERED: MAG-OX 400400 MG/TAB PO (08:42)
[2023-09-26] MEDS ORDERED: PROTONIX 40MG T40 MG PO (08:42)
[2023-09-26] MEDS ORDERED: PROAIR HFA0.09 MG/AC IH (08:42)
[2023-09-26] MEDS ORDERED: CENTRUM 240 ML240 ML PO (08:42)
[2023-09-26] MEDS ORDERED: COREG 6.256.25 MG/TA PO (08:43)
[2023-09-26] MEDS ORDERED: ENTRESTO 24 MG1 EACH PO (08:43)
[2023-09-26] MEDS ORDERED: ALDACTONE 25MG25 M1 PO (08:43)
--- NOTE | 2023-09-26 08:45 | NUR ---
Dr Antoine in to see patient
--- NOTE | 2023-09-26 09:00 | NUR ---
full assessment completed, see interventions for further info, is alert and oriented and very cooperative, he is very excited that he has gotten up and gone to the bathroom two times,
[2023-09-26] MEDS ORDERED: FLAGYL500 MG PO (10:01)
[2023-09-26] MEDS ORDERED: CIPRO 500MG TA500 MG PO (10:01)
[2023-09-26] MEDS ORDERED: DIFLUCAN200 MG PO (10:01)
--- NOTE | 2023-09-26 10:30 | NUR ---
appears to be sleeping, in bed with eyes closed, resp quiet and easy
--- NOTE | 2023-09-26 11:40 | NUR ---
assisted up to bathroom and voids qs, ambulates with slow steady gait and is again excited he is up and moving, colostomy bag emptied small amount tannish liquid to semisoft stool, airstrip dressing with small amount serosanguinous drainage distal end, new airstrip placed, hygiene provided, lunch is here, will eat lunch and then get dressed for discharge
[2023-09-26] MEDS ORDERED: AMOXICILLIN 8751 TAB PO (11:43)
[2023-09-26] MEDS ORDERED: DIFLUCAN150 MG PO (11:43)
--- NOTE | 2023-09-26 12:40 | NUR ---
discharged per WC
--- NOTE | 2023-09-26 12:53 | NUR ---
report called to DRAKE Clark
--- NOTE | 2023-09-26 13:46 | NUR ---
SW contacted Jazmín with [facility] to confirm discharge and transportation set up. Discharge Packet faxed to [facility] / intake.
== END 2023-09-26 12:40 | disposition swing bed (61) | DRG 853 ==
LOC: COL.ER 14:31 → ICU 20:24 → SURG 09-19 20:13
PROVIDERS: Emergency Medicine; Internal Medicine; Internal Medicine Pulmonary Disease; Nurse Practitioner Family; Physician Assistant; Surgery; ADMIT Internal Medicine
PROC: 0DSN0ZZ Reposition Sigmoid Colon, Open Approach (ICD-10-PCS; principal; 2023-09-15 22:00)
DX: A41.9 Sepsis, unspecified organism (principal); K63.1 Perforation of intestine (nontraumatic); R65.21 Severe sepsis with septic shock; N17.9 Acute kidney failure, unspecified; E87.5 Hyperkalemia; R53.81 Other malaise; E78.5 Hyperlipidemia, unspecified; N40.0 Benign prostatic hyperplasia without lower urinary tract symptoms
CPT/HCPCS: C9113; J0330; J0348; J1450; J2270; J2405; J2543; J2598; J2704; J3010; J3475; J3480; J7030; J7050; J7060; J7120; Q3014